=== PATIENT | female | born 1980 | race African-American/Black ===

== ENCOUNTER 2019-01-24 09:54 | Emergency (ER) | payer OTHER ==
[~2019-01-24] VITALS: Ht 172.7 cm; Wt 115.5 kg
[~2019-01-24 09:54] MED LIST: BENZ1TAB10 PO; DIPH25CA85 PO; PALI156D IM
[2019-01-24] MEDS ORDERED: ARIP10TA8 PO (10:10)
[2019-01-24] MEDS ORDERED: TOPI25 PO (10:10)
[2019-01-24] MEDS ORDERED: SODIUM CHLORIDE 0.9% 1,000 ML IV ONE (10:11)
[2019-01-24] MEDS ORDERED: ONDANSETRON HCL 4 MG/2 ML VIAL IVP ONE (10:15)
[2019-01-24 10:45] LABS: BILIRUBIN,URINE NEGATIVE (NEGATIVE); GLUCOSE, URINE (UA) NEGATIVE (NEGATIVE); KETONES,URINE TRACE mg/dL (NEGATIVE); LEUKOCYTE ESTERASE ,URINE NEGATIVE (NEGATIVE); NITRATE,URINE NEGATIVE (NEGATIVE); OCCULT BLOOD,URINE NEGATIVE (NEGATIVE); PROTEIN,URINE NEGATIVE (NEGATIVE); UROBILINOGEN,URINE 0.2 mg/dL (<=1.0)
[2019-01-24 10:48] LABS: AMPHET/METH SCREEN,URINE NEGATIVE (NEGATIVE); BARBITURATE SCREEN, URINE NEGATIVE (NEGATIVE); BENZODIAZEPINES SCREEN,URINE NEGATIVE (NEGATIVE); CANNABINOID SCREEN,URINE NEGATIVE (NEGATIVE); COCAINE SCREEN,URINE NEGATIVE (NEGATIVE); METHADONE SCREEN, URINE NEGATIVE (NEGATIVE); OPIATE SCREEN,URINE NEGATIVE (NEGATIVE)
[2019-01-24 10:53] LABS: APPEARANCE,URINE HAZY (CLEAR); PHENCYCLIDINE SCREEN,URINE NEGATIVE (NEGATIVE)
[2019-01-24 10:55] LABS: BASOPHILS % (AUTO) 0.9 % (0.0-2.0); EOSINOPHILS % (AUTO) 1.6 % (1.0-6.0); HEMATOCRIT 39.6 % (36-46); HEMOGLOBIN 12.4 g/dL (12.0-16.0); LYMPHOCYTES # (AUTO) 1.3 K/uL (1.0-4.8); LYMPHOCYTES % (AUTO) 29.2 % (22.0-44.0); MEAN CORPUSCULAR HEMOGLOBIN 23.7 pg (26.0-34.0); MEAN CORPUSCULAR HGB CONC 31.4 G/dL (31.0-37.0); MEAN CORPUSCULAR VOLUME 76 fL (80-100); MONOCYTES # (AUTO) 0.4 K/uL (0.1-1.0); MONOCYTES % (AUTO) 7.9 % (2.0-9.0); NEUTROPHILS # (AUTO) 2.7 K/uL (1.8-7.7); NEUTROPHILS % (AUTO) 60.4 % (40.0-70.0); PLATELET COUNT (AUTO) 346 K/uL (150-450); RED BLOOD CELL COUNT(AUTO) 5.24 MIL/uL (4.00-5.20); RED CELL DISTRIBUTION WIDTH 13.9 % (11.5-14.5)
[2019-01-24 11:09] LABS: ANION GAP 6 mmol/L (8-16); CALCIUM, TOTAL 9.2 mg/dL (8.8-10.5); CARBON DIOXIDE 30 mmol/L (22-29); CHLORIDE 102 mmol/L (98-107); CREATININE 0.85 mg/dL (0.60-1.30); GLOMERULAR FILTR. RATE CALC > 60 mL/min (>60); GLUCOSE,RANDOM 88 mg/dL (70-110); POTASSIUM 4.2 mmol/L (3.5-5.1); SODIUM SERUM 138 mmol/L (136-145); UREA NITROGEN, BLOOD 11 mg/dL (7-18)
[2019-01-24 11:12] LABS: ALANINE AMINOTRANSFERASE 18 U/L (12-78); ALBUMIN 3.4 g/dL (3.4-5.0); ALKALINE PHOSPHATASE 63 U/L (46-116); ASPARTATE AMINOTRANSFERASE 12 U/L (15-37); BILIRUBIN,TOTAL 0.2 mg/dL (0.1-1.0); LIPASE 148 U/L (73-393); TOTAL PROTEIN, SERUM 7.2 g/dL (6.4-8.2)
[2019-01-24] MEDS ORDERED: BISMUTH SUBSALICYLATE 524 MG/30 ML SUSPENSION UDCUP PO ONE (11:30)
[2019-01-24 12:08] VITALS: BP 123/80
== END 2019-01-24 12:08 | disposition home or self-care (01) ==
LOC: EMS 09:56
DX: S80.212A Abrasion, left knee, initial encounter (principal); S80.211A Abrasion, right knee, initial encounter; R10.30 Lower abdominal pain, unspecified; R11.0 Nausea; F17.200 Nicotine dependence, unspecified, uncomplicated; J45.909 Unspecified asthma, uncomplicated; F41.9 Anxiety disorder, unspecified; F17.210 Nicotine dependence, cigarettes, uncomplicated; Z90.710 Acquired absence of both cervix and uterus; Z79.899 Other long term (current) drug therapy; Z88.8 Allergy status to other drugs, medicaments and biological substances; V29.9XXA Motorcycle rider (driver) (passenger) injured in unspecified traffic accident, initial encounter; Y93.89 Activity, other specified; Y92.410 Unspecified street and highway as the place of occurrence of the external cause; Y99.8 Other external cause status
CPT/HCPCS: 36415; 80053; 80307; 81003; 83690; 85025; 96374; 99283; 99406; J2405; J7030

== ENCOUNTER 2019-05-27 21:07 | Emergency (ER) | payer OTHER ==
[~2019-05-27] VITALS: Ht 167.6 cm; Wt 85.0 kg
[~2019-05-27 21:07] MED LIST changes: +ARIP10TA8 PO; -BENZ1TAB10 PO; -DIPH25CA85 PO; -PALI156D IM; +TOPI25 PO
[2019-05-27 21:55] VITALS: BP 124/75
== END 2019-05-27 22:05 | disposition home or self-care (01) ==
LOC: EMS 21:09
DX: S91.302A Unspecified open wound, left foot, initial encounter (principal); S91.301A Unspecified open wound, right foot, initial encounter; F20.9 Schizophrenia, unspecified; F41.9 Anxiety disorder, unspecified; J45.909 Unspecified asthma, uncomplicated; F17.210 Nicotine dependence, cigarettes, uncomplicated; Z76.0 Encounter for issue of repeat prescription; Z88.1 Allergy status to other antibiotic agents; X58.XXXA Exposure to other specified factors, initial encounter; Y93.89 Activity, other specified; Y92.89 Other specified places as the place of occurrence of the external cause; Y99.8 Other external cause status

== ENCOUNTER 2024-03-03 03:36 | Emergency (ER) | payer MEDICARE, MEDICAID ==
[~2024-03-03] VITALS: Ht 165.1 cm; Wt 93.0 kg
[~2024-03-03 03:36] MED LIST changes: +ARIP10TA38 PO; -ARIP10TA8 PO; +CLIN300C58 PO; +RISP2TAB45 PO
[2024-03-03 03:49] VITALS: BP 128/76; PULSE 129; RESP 20; TEMP 98
== END 2024-03-03 04:07 | disposition left against medical advice (07) ==
LOC: EMS 03:37
DX: R52 Pain, unspecified (principal); Z53.21 Procedure and treatment not carried out due to patient leaving prior to being seen by health care provider

== ENCOUNTER → 2024-03-08 | Emergency (ER) | payer MEDICARE, MEDICAID | END | disposition still patient (30) | LOC: EMS 13:21 | DX: M79.671 Pain in right foot (principal); M79.672 Pain in left foot; Z88.1 Allergy status to other antibiotic agents; Z86.59 Personal history of other mental and behavioral disorders; Z59.00 Homelessness unspecified | CPT/HCPCS: 99281; Z7502 ==

== ENCOUNTER 2024-03-09 01:31 | Emergency (ER) | payer MEDICARE, MEDICAID ==
[~2024-03-09] VITALS: Ht 165.1 cm; Wt 94.0 kg
[2024-03-09 01:38] VITALS: BP 118/75; PULSE 75; RESP 18; TEMP 97.5
== END 2024-03-09 03:02 | disposition left against medical advice (07) ==
LOC: EMS 01:32
DX: F20.9 Schizophrenia, unspecified (principal); Z88.1 Allergy status to other antibiotic agents
CPT/HCPCS: 99281; Z7502